=== PATIENT | male | born 1965 | race Caucasian/White ===

== ENCOUNTER 2016-12-11 20:39 | Emergency (ER) | payer OTHER ==
[~2016-12-11] VITALS: Ht 198.1 cm; Wt 96.0 kg
[~2016-12-11 20:39] MED LIST: TESSALON PERLE100 MG PO; ULTRAM50 MG PO; ZITHROMAX Z-PA250 MG PO
[2016-12-11 21:04] LABS: MCH 29.1 PG (29.0-34.0); MCHC 33.4 G/DL (30.0-36.0); MEAN PLAT.VOLUME 10.3 uM^3 (9.0-12.4); PLATELET COUNT 259 K/uL (156-360); RBC DIS.WIDTH-CV 12.4 % (11.8-14.6); RBC DIS.WIDTH-SD 39.8 % (39-53); RED BLOOD COUNT 4.37 M/uL (4.00-5.50); WHITE BLOOD COUNT 7.7 K/uL (4.1-10.2)
[2016-12-11 21:16] LABS: CHLORIDE 105 mEq/L (99-109); POTASSIUM 3.8 mEq/L (3.7-5.4); SODIUM 140 mEq/L (136-147)
[2016-12-11 21:18] LABS: GLUCOSE 87 mg/dL (70-99)
[2016-12-11 21:19] LABS: ANION GAP 11 MEQ/L (2-14)
[2016-12-11 21:22] LABS: GFR ESTIMATE (CALCULATED) 40 mL/min/; UREA NITROGEN (BUN) 10 mg/dL (9-23)
[2016-12-11 21:28] LABS: TROP-I INTERPRETATION NEGATIVE; TROPONIN-I < 0.01 ng/mL (0.0-0.30)
[2016-12-11 22:10] LABS: CREATINE KINASE 59 IU/L (1-294); TOTAL CK 59 IU/L (1-294)
[2016-12-11 23:46] LABS: TROP-I INTERPRETATION NEGATIVE; TROPONIN-I < 0.01 ng/mL (0.0-0.30)
[2016-12-12 00:18] VITALS: BP 116/62
== END 2016-12-12 00:37 | disposition home or self-care (01) ==
LOC: EME 20:39
PROVIDERS: Emergency Medicine
DX: R07.9 Chest pain, unspecified (principal); F17.200 Nicotine dependence, unspecified, uncomplicated; N28.9 Disorder of kidney and ureter, unspecified; H53.8 Other visual disturbances; R42 Dizziness and giddiness; R11.2 Nausea with vomiting, unspecified
CPT/HCPCS: 71020; 80048; 82550; 82553; 83880; 84484; 85027; 93005; 99281; 99285; J7030